=== PATIENT | female | born 1955 | race Caucasian/White ===

== ENCOUNTER 2016-12-10 13:18 | Observation (INO) | payer OTHER ==
[~2016-12-10] VITALS: Ht 175.3 cm; Wt 102.3 kg
[~2016-12-10 13:18] MED LIST: ALDACTAZIDE 251 EACH PO; APIDRA SOL100 UNIT/1 SQ; APIDRA100 UNIT/1 SC; ASPIR-LOW81 MG PO; AVAPRO75 MG PO; BP MED; BUPROBAN150 MG PO; BYSTOLIC20 MG PO; CARDIZEM CD240 MG PO; CARTIA XT; CARTIA XT240 MG PO; CARVEDILOL12.5 MG PO; CELEBREX200 MG PO; CILOSTAZOL100 MG PO; COREG25 M1 PO; CRESTOR40 MG PO; CYANOCOBALAM1000 MCG PO; DILAUDID2 MG PO; DIOVAN320 MG PO; FENOFIBRATE160 M1 PO; HUMALOG100 UNIT/2 SC; LANTUS 10100 UNITS/ SC; LANTUS 3 M100 UNITS1 SC; LASIX20 MG PO; LEVEMIR FL100 UNIT/1 SC; LEXAPRO10 MG PO; LEXAPRO20 MG PO; LIPITOR20 MG PO; LIPITOR80 MG PO; LISINOPRIL10 MG PO; LISINOPRIL20 MG PO; METFORMIN HCL1000 MG PO; MICROZIDE12.5 M1 PO; MINOCYCLINE HC100 MG PO; MOBIC7.5 MG PO; NIFEDIPINE ER30 MG PO; NOVOLOG PE100 UNITS/ SC; PANTOPRAZOLE SO40 MG PO; PERCOCET 5/31 TABLET PO; PLAVIX75 MG PO; PRAZOSIN HCL1 MG PO; PROAIR HFA8.5 GM IH; PROMETHAZINE HC25 M1 PO; PROTONIX40 MG PO; SPIRIVA RESPIMAT4 GM IH; TANZEUM50 MG/0.5 SC; TOUJEO SOL300 UNIT/1 SC; TYLENOL EXTRA500 MG PO; VICODIN 5-3001 EACH PO; VITAMIN B-12250 MCG PO; VITAMIN D400 UNI1 PO; WELLBUTRIN XL150 MG PO; WELLBUTRIN XL300 MG PO; WELLBUTRIN75 MG PO
[2016-12-10 13:52] LABS: CHLORIDE 106 mEq/L (99-109); POTASSIUM 3.9 mEq/L (3.7-5.4); SODIUM 138 mEq/L (136-147)
[2016-12-10 13:54] LABS: GLUCOSE 155 mg/dL (70-99)
[2016-12-10 13:56] LABS: ANION GAP 8 MEQ/L (2-14); TOTAL BILIRUBIN 0.4 mg/dL (0.0-1.0)
[2016-12-10 13:58] LABS: ALKALINE PHOSPHATASE 106 IU/L (3-129); GFR ESTIMATE (CALCULATED) > 59 mL/min/
[2016-12-10 13:59] LABS: UREA NITROGEN (BUN) 24 mg/dL (9-23)
[2016-12-10 14:05] LABS: TROP-I INTERPRETATION NEGATIVE; TROPONIN-I < 0.01 ng/mL (0.0-0.30)
[2016-12-10 14:49] LABS: HEMATOCRIT ND % (36.0-46.0); RED BLOOD COUNT ND M/uL (3.80-5.20); WHITE BLOOD COUNT ND K/uL (4.1-10.2)
[2016-12-10 14:50] LABS: BASOPHIL COUNT ND K/uL (0-0.1); EOSINOPHIL (%) ND % (0-5); EOSINOPHIL COUNT ND K/uL (0-0.3); IMMATURE GRANULOCYTE (%) ND % (0.0-0.7); IMMATURE GRANULOCYTE COUNT ND K/uL; LYMPHOCYTE COUNT ND K/uL (1.0-2.8); MCH ND PG (29.0-34.0); MCHC ND G/DL (30.0-36.0); MCV ND FL (83-99); MEAN PLAT.VOLUME ND uM^3 (9.5-12.4); MONOCYTE (%) ND % (3-12); MONOCYTE COUNT ND K/uL (0-0.8); NEUTROPHIL (%) ND % (45-76); NEUTROPHIL COUNT ND K/uL (1.8-6.4); NRBC (%) ND /100 WBC (0-0); NRBC COUNT ND K/uL (0-0); PLATELET COUNT ND K/uL (156-360); RBC DIS.WIDTH-CV ND % (11.8-14.6); RBC DIS.WIDTH-SD ND % (39-53)
[2016-12-10 14:51] LABS: POINT-OF-CARE METER ID UU14100415
[2016-12-10 14:56] LABS: POINT-OF-CARE METER ID UU14100415
[2016-12-10 15:10] LABS: EOSINOPHIL (%) 0 % (0-5); IMMATURE GRANULOCYTE (%) 0.8 % (0.0-0.7); IMMATURE GRANULOCYTE COUNT 0.1 K/uL; INSTRUMENT ABS NEUTROPHIL CT 5.8 K/uL; LYMPHOCYTE COUNT 1.1 K/uL (1.0-2.8); MCH 26.7 PG (29.0-34.0); MCHC 31.3 G/DL (30.0-36.0); MCV 85.4 FL (83-99); MEAN PLAT.VOLUME 9.3 uM^3 (9.5-12.4); MONOCYTE (%) 7.6 % (3-12); MONOCYTE COUNT 0.6 K/uL (0-0.8); NEUTROPHIL (%) 76.9 % (45-76); NEUTROPHIL COUNT 5.8 K/uL (1.8-6.4); PLATELET COUNT 218 K/uL (156-360); RBC DIS.WIDTH-CV 15.2 % (11.8-14.6); RBC DIS.WIDTH-SD 47.4 % (39-53); RED BLOOD COUNT 4.45 M/uL (3.80-5.20); WHITE BLOOD COUNT 7.5 K/uL (4.1-10.2)
[2016-12-10] MEDS ORDERED: COREG6.25 M1 PO (15:20)
[2016-12-10] MEDS ORDERED: NOVOLOG PE100 UNITS/ SC ×2 (15:24→16:25)
[2016-12-10] MEDS ORDERED: TRESIBA FL200 UNIT/1 SC (15:26)
[2016-12-10] MEDS ORDERED: PERCOCET 5/31 TABLET PO (15:28)
[2016-12-10] MEDS ORDERED: VITAMIN D32000 UNI1 PO (15:28)
[2016-12-10] MEDS ORDERED: VITAMIN B-123000 MCG SL (15:28)
[2016-12-10 15:33] LABS: POINT-OF-CARE METER ID UU14100415
[2016-12-10 16:41] LABS: POINT-OF-CARE METER ID UU14100415
[2016-12-10 17:54] VITALS: BP 178/74
[2016-12-10 18:40] LABS: POINT-OF-CARE METER ID UU13113700
[2016-12-10 20:41] LABS: TROP-I INTERPRETATION NEGATIVE; TROPONIN-I < 0.01 ng/mL (0.0-0.30)
[2016-12-10 21:19] LABS: POINT-OF-CARE METER ID UU13113700
[2016-12-10 23:49] VITALS: BP 145/83
[2016-12-11 01:50] LABS: TROP-I INTERPRETATION NEGATIVE; TROPONIN-I < 0.01 ng/mL (0.0-0.30)
[2016-12-11 04:30] VITALS: BP 129/62
[2016-12-11 05:10] LABS: ADD MIUA? YES; BILIRUBIN NEGATIVE; BLOOD NEGATIVE; COLOR YELLOW ((YELLOW)); GLUCOSE (STRIP) 50; KETONES NEGATIVE; LEUKOCYTES TRACE; NITRITE POSITIVE; PROTEIN (STRIP) NEGATIVE; SPECIFIC GRAVITY 1.012 (1.000-1.030); UROBILINOGEN 0.2 MG/DL (0.2-1.0)
[2016-12-11 05:18] LABS: BACTERIA 1+ /HPF; EPITHELIAL CELLS RARE /HPF; MUCUS NONE SEEN /LPF; RED BLOOD CELLS NONE SEEN /HPF (0-5); UCUL ADDED? NO
[2016-12-11 08:00] VITALS: BP 125/58
[2016-12-11 09:24] LABS: POINT-OF-CARE METER ID UU13113831
[2016-12-11 10:17] LABS: Estimated Average Glucose 151 mg/dL (70-123); HEMOGLOBIN A1c (GLYCOHEMOGLOB) 6.9 % HGB (Below 5.7)
[2016-12-11] MEDS ORDERED: NOVOLOG PE100 UNITS/ SC ×2 (10:35→10:40)
[2016-12-11] MEDS ORDERED: CIPROFLOXACIN500 M1 PO (10:46)
== END 2016-12-11 13:02 | disposition home or self-care (01) ==
LOC: EME 13:18 → EDOF 15:30 → 5WEST 15:30 → EDOF 15:30 → 5WEST 17:50
PROVIDERS: Emergency Medicine; Internal Medicine; Nurse Practitioner Adult Health; Student in an Organized Health Care Education/Training Program
DX: E11.649 Type 2 diabetes mellitus with hypoglycemia without coma (principal); I10 Essential (primary) hypertension; K21.9 Gastro-esophageal reflux disease without esophagitis; E66.01 Morbid (severe) obesity due to excess calories; F32.9 Major depressive disorder, single episode, unspecified; Z87.891 Personal history of nicotine dependence; Z79.4 Long term (current) use of insulin; E66.9 Obesity, unspecified; Z68.33 Body mass index [BMI] 33.0-33.9, adult; I73.9 Peripheral vascular disease, unspecified; E78.5 Hyperlipidemia, unspecified; M06.9 Rheumatoid arthritis, unspecified
CPT/HCPCS: 70450; 71010; 80053; 81003; 82948; 83036; 84443; 84484; 85025; 85025 91; 87077; 87086; 87186; 93005; 94799; 99281; 99285; G0378; J1644; J1815; J2405; J7030